=== PATIENT | male | born 1930 | race Asian ===

== ENCOUNTER → 2016-07-29 | Outpatient (CLI) | payer MEDICARE, BC ==
--- NOTE | 2016-07-29 16:15 | RADRPT ---
PROCEDURE: XR Right hip and pelvis. CLINICAL INDICATION: Right hip pain. Pelvic pain. Postop. TECHNIQUE: Two views. Frontal pelvis and lateral right hip. COMPARISON: No prior studies are available for comparison. FINDINGS: There is no fracture or dislocation. The soft tissues are normal. There is a right hip total arthroplasty which appears satisfactory. There is also a total left hip arthroplasty which appears satisfactory. There is no lytic or blastic lesion. The upper pelvis is not completely included on the image. IMPRESSION: 1. Satisfactory postoperative appearance of both hips. 2. Otherwise unremarkable study. RPTAT: QQ .Kapil Roque MD, Date Time Electronically viewed and signed by .Kapil Roque MD, on 07/29/2016 16:15 .R/
--- NOTE | 2016-07-29 23:37 | HKNOTE ---
DATE OF SERVICE: 07/29/2016 MAIN COMPLAINT: "Fluid in the right hip." HISTORY OF MAIN COMPLAINT: The patient is an 85-year-old male who was recently admitted to [facility] when he developed a bleeding duodenal ulcer. The patient has had bilateral hip replacem ents in the past, which were performed by me. As part of his workup, various tests were performed a nd the patient was told that he had "fluid in the right hip and should see an orthopedic surgeon." The patient contacted Dr. Sathya Child, , who is his family doctor. The family docto r then referred him to me for evaluation of this "fluid on the hip." PRESENT COMPLAINTS: The patient has absolutely no symptoms or complaints referable to either hip. He has been very pleased with the result of his hip replacement surgeries. He has not had "a moment of problem with them." He is elderly and fragile. He uses a walker most of the time. He also has a wheelchair. None of that is related to his hip. He has no pain in his right hip. He has had a history of problems with his lower back for which he has had epidural injections. He uses a walker most of the time. PAST ORTHOPEDIC HISTORY: Bilateral hip replacements performed by Dr. Salazar right in 2002, lef darion in 2006. PRIOR CORTISONE INTAKE: None. ALCOHOL INTAKE: None. OTHER JOINT PROBLEMS: Shoulder pain. BLOOD TESTS FOR ARTHRITIS: None. PRIOR INJURIES TO HIPS OR KNEES: None. PAST MEDICAL HISTORY 1. Hypertension. 2. History of peptic ulcers. 3. "Arthritis." PAST SURGICAL HISTORY: Prostatectomy in 1997, bilateral total hip replacements performed by Dr. Cristofer monroy. ALLERGIES: PENICILLIN. MEDICATIONS: 1. Synthroid. 2. Pantoprazole. 3. Amlodipine. 4. Atenolol. 5. Ferrous sulfate. 6. Gabapentin. 7. Sertraline. 8. Losartan. FAMILY HISTORY: Noncontributory. SYSTEMS REVIEW: Has passed kidney stones in the past, has had blood from the rectum, otherwise enti rely negative. HABITS: The patient smoked 1 pack of cigarettes a day for 20 years. He gave up a number of years a go. Alcohol intake: "Very little, occasional." INDUSTRIAL PIPEFITTER JOURNEYMAN: Dr. Sathya Child, [facility], [id number] [facility] [id number]. PHYSICAL EXAMINATION: GENERAL: The patient comes in with 4 family members. He comes in a wheelchair. He is completely c omfortable and fully alert and oriented. VITAL SIGNS: Height 5 feet 10 inches, weight 201 pounds, blood pressure 165/70, temperature 98.0. HIP EXAMINATION: The patient's hips were examined with him sitting in a wheelchair. He has absolut robby no pain on putting his hips through a range of motion. IMAGING: Plain x-rays of his pelvis and hips obtained today show bilateral hip replacements. All c omponents are well attached to the bone. The alignment of the implants is good. There is actually no sign of loosening of either implant or fracture of the implant or surrounding bones. DISCUSSION: The patient had had a remarkable result from his hip replacement surgery. He has had n o pain in his hips. The reason for the visit is somewhat surprising. The patient stating that he h ad "tests" at [facility], "which showed fluid in his hip." The patient brings with him a d ischarge summary of all that transpired at the [facility]. No mention is made of his hips or of any tests performed that showed fluid in the hip. I phoned Dr. Sathya Child, who remembers him well. He remembers that "some test was performed," which showed fluid in the right hip. He believes that the tests included a CAT scan and ____. MANAGEMENT: After discussion with Dr. Child, it was agreed that he would go through the medical r ecords at [facility] and he will contact me on my cell phone and let me know the result of his resea [facility]. At the most, I believe an MRI scan of the right hip may be appropriate to lay the matter to [facility]. Dictated By: JULIO PHILLIP/AMIRA Conf#: [id number] DID#: [id number]
== END | disposition home or self-care (01) ==
LOC: HKI 15:20
DX: M25.451 Effusion, right hip (principal); Z96.643 Presence of artificial hip joint, bilateral
CPT/HCPCS: 73502